=== PATIENT | female | born 1965 | race Caucasian/White ===

== ENCOUNTER → 2017-03-29 | Outpatient (CLI) | payer OTHER ==
[~2017-03-29] MED LIST: CALCTAB7 PO; IBUP-1050 PO; MECL25TA2 PO; METR0.7510 PV; METR0.7527 TOP; MULTTAB58 PO; NXM/40 PO; PENC1CRE33 TOP; SULFACETAMIDE 10% TOP
--- NOTE | 2017-03-30 08:16 | MAMMOGRAPHY REPORT ---
BILATERAL DIGITAL SCREENING MAMMOGRAM TOMOSYNTHESIS WITH CAD: 03/29/2017 CLINICAL HISTORY: Routine screening. Patient has no complaints. TECHNIQUE: Breast tomosynthesis in addition to standard 2D mammography was performed. Current study was also evaluated with a Computer Aided Detection (CAD) system. COMPARISON: Comparison is made to exams dated: 03/16/2016 mammogram, 03/11/2015 mammogram, 03/07/2014 mammogram, 03/05/2013 mammogram - [facility], 10/29/2010 mammogram, and 10/28/2009 m ammogram - [facility]. BREAST COMPOSITION: The tissue of both breasts is extremely dense, which lowers the sensitivity of mammography. FINDINGS: There is a 6 mm nodular asymmetry in the far posterior right breast, along the posterior nipple line on the MLO view that persists on the tomosynthesis images. Although this could represen t normal overlapping fibrolinear tissue, additional spot compression to the symphysis views and poss ibly ultrasound are recommended. There are scattered benign-appearing microcalcifications bilaterally. No other suspicious mass, arc hitectural distortion or cluster of microcalcifications is seen. IMPRESSION: ACR BI-RADS CATEGORY 0: INCOMPLETE EVALUATION: NEED ADDITIONAL IMAGING EVALUATION The 6 mm nodular asymmetry in the far posterior right breast on the MLO view needs additional evalua tion. The patient will be called to schedule an appointment. Approximately 10% of breast cancers are not detected with mammography. A negative mammographic repor t should not delay biopsy if a clinically suggestive mass is present. Eri Hoang M.D. ay/:03/29/2017 17:44:05 Rn Clinician: Connie PROCTOR(Eloy)(M), [facility] letter sent: Addl Imaging 0 BI-RADS Code: ACR BI-RADS Category 0: Incomplete Evaluation: Need Additional Imaging Evaluation
== END | disposition home or self-care (01) ==
LOC: C.MAMM 16:38
PROVIDERS: ATTEND Obstetrics & Gynecology
DX: Z12.31 Encounter for screening mammogram for malignant neoplasm of breast (principal); N64.9 Disorder of breast, unspecified

== ENCOUNTER → 2017-04-13 | Outpatient (CLI) | payer OTHER ==
--- NOTE | 2017-04-13 14:07 | MAMMOGRAPHY REPORT ---
UNILATERAL RIGHT DIGITAL DIAGNOSTIC MAMMOGRAM TOMOSYNTHESIS: 04/13/2017 CLINICAL HISTORY: Callback from screening mammogram for right breast asymmetry. TECHNIQUE: Breast tomosynthesis in addition to standard 2D mammography was performed. Spot mariza juan right MLO 2-D and tomosynthesis images were obtained. COMPARISON: Comparison is made to exams dated: 03/29/2017 mammogram, 03/16/2016 mammogram, 03/11/2015 mammogram, 03/07/2014 mammogram, 03/05/2013 mammogram - [facility], and 10/29/2010 m ammogram - [facility]. BREAST COMPOSITION: The tissue of the right breast is extremely dense, which lowers the sensitivity of mammography. FINDINGS: The previously described asymmetry seen within the right posterior breast on the MLO view effaces to a baseline appearance on the additional spot compression views, and has the appearance o f normal fibroglandular tissue on the tomosynthesis images. No suspicious masses or areas of maryam ectural distortion are noted in this region on the additional images. IMPRESSION: ACR BI-RADS CATEGORY 2: BENIGN The right breast asymmetry effaces on the additional images, and is benign and compatible with messi l fibroglandular tissue. There is no mammographic evidence of malignancy. A 1 year screening mammog marla is recommended. The patient has been verbally notified of the results. Approximately 10% of breast cancers are not detected with mammography. A negative mammographic repor t should not delay biopsy if a clinically suggestive mass is present. Karma Jacques M.D. /:04/13/2017 08:22:40 Coremaker Apprentice: Karissa Cassidy, [facility] letter sent: Normal 1/2 BI-RADS Code: ACR BI-RADS Category 2: Benign
== END | disposition home or self-care (01) ==
LOC: C.MAMM 08:03
PROVIDERS: ATTEND Obstetrics & Gynecology
DX: N64.89 Other specified disorders of breast (principal)

== ENCOUNTER → 2017-07-21 | Outpatient (CLI) | payer OTHER ==
[~2017-07-21] MED LIST changes: -PENC1CRE33 TOP; +PENC1CRE4 TOP
[2017-07-21 12:09] LABS: URINE APPEARANCE CLEAR (CLEAR); URINE BILIRUBIN NEG (NEG); URINE COLOR DK YELLOW; URINE EPITHELIAL CELL AUTO >30 /lpf (0-5); URINE NITRITE NEG (NEG); URINE PH 6.5 (4.5-7.5); URINE SPECIFIC GRAVITY 1.026 (1.000-1.030); UROBILINOGEN NEG (NEG); ZZUR CULT IF INDIC CLEAN CATCH NO
[2017-07-21 12:15] LABS: MANUAL MICROSCOPIC REQUIRED? NO; REVIEW REQ? NO
== END | disposition home or self-care (01) ==
LOC: C.LABSPEC 11:07
PROVIDERS: ATTEND Obstetrics & Gynecology
DX: R39.9 Unspecified symptoms and signs involving the genitourinary system (principal)

== ENCOUNTER → 2017-07-21 | Outpatient (CLI) | payer OTHER | END | disposition home or self-care (01) | LOC: C.PAPS 12:00 | PROVIDERS: ATTEND Obstetrics & Gynecology | DX: Z12.4 Encounter for screening for malignant neoplasm of cervix (principal) ==

== ENCOUNTER → 2017-10-18 | Outpatient (CLI) | payer OTHER ==
[~2017-10-18] MED LIST changes: +PENC1CRE33 TOP; -PENC1CRE4 TOP
[2017-10-18 16:00] LABS: URINE APPEARANCE CLEAR (CLEAR); URINE BILIRUBIN NEG (NEG); URINE COLOR YELLOW; URINE NITRITE NEG (NEG); URINE PH 7.5 (4.5-7.5); URINE SPECIFIC GRAVITY 1.004 (1.000-1.030); UROBILINOGEN NEG (NEG)
[2017-10-18 16:02] LABS: MANUAL MICROSCOPIC REQUIRED? NO; REVIEW REQ? NO
== END | disposition home or self-care (01) ==
LOC: C.LABSPEC 15:42
PROVIDERS: ATTEND Obstetrics & Gynecology
DX: R32 Unspecified urinary incontinence (principal); N39.0 Urinary tract infection, site not specified

== ENCOUNTER → 2017-10-18 | Outpatient (CLI) | payer OTHER ==
--- NOTE | 2017-10-18 15:02 | DIAGNOSTIC IMAGING REPORT ---
R SHOULDER MIN 2 VIEWS ROUTINE CLINICAL HISTORY: ABNORMAL BONE FORMATION mass COMPARISON: None. DISCUSSION: Chronic grade 1 separation right acromioclavicular joint. Mild superior displacement of the clavicle in relation to the acromion. Angulation of the mid clavicular shaft. 3 secondary to an old healed fracture. No acute bony abnormality. There is no evidence for soft tissue swelling. IMPRESSION: 1. 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 2. Superior angulation mid clavicular shaft felt to be secondary to old trauma. The above report was generated using voice recognition software. It may contain grammatical, syntax or spelling errors. Electronically signed by: Adonis Gonsales M.D. 10/18/2017 3:01 PM Dictated Date/Time: 10/18/2017 3:00 PM
== END | disposition home or self-care (01) ==
LOC: C.RAD1850 14:42
PROVIDERS: ATTEND Family Medicine
DX: M89.8X9 Other specified disorders of bone, unspecified site (principal); S43.101D Unspecified dislocation of right acromioclavicular joint, subsequent encounter; X58.XXXD Exposure to other specified factors, subsequent encounter

== ENCOUNTER → 2017-10-30 | Outpatient (CLI) | payer OTHER | END | disposition home or self-care (01) | LOC: C.MAMM 15:30 | PROVIDERS: ATTEND Family Medicine | DX: E28.39 Other primary ovarian failure (principal) ==

== ENCOUNTER → 2017-11-08 | Outpatient (CLI) | payer OTHER ==
--- NOTE | 2017-11-08 21:08 | DIAGNOSTIC IMAGING REPORT ---
CHEST 2 VIEWS ROUTINE CLINICAL HISTORY: 52 years-old Female presenting with COUGH. TECHNIQUE: PA and lateral views of the chest were obtained. COMPARISON: 12/04/2015. FINDINGS: Cardiomediastinal silhouette normal. Lungs and pleural spaces clear. Osseous structures normal. Upper abdomen normal. IMPRESSION: 1. No acute cardiopulmonary disease. Electronically signed by: Jackson Espinoza M.D. 11/08/2017 9:06 PM Dictated Date/Time: 11/08/2017 9:05 PM
== END | disposition home or self-care (01) ==
LOC: C.RAD 20:24
PROVIDERS: ATTEND Family Medicine Adolescent Medicine
DX: R05 Cough (principal)

== ENCOUNTER → 2018-02-13 | Outpatient (CLI) | payer OTHER ==
--- NOTE | 2018-02-13 18:26 | DIAGNOSTIC IMAGING REPORT ---
ORBITS FOR MRI HISTORY: Pre-MRI pre-MRI screening. COMPARISON: None. FINDINGS: There are no radiopaque foreign bodies identified within the orbits. IMPRESSION: No radiopaque foreign bodies identified within the orbits. The above report was generated using voice recognition software. It may contain grammatical, syntax or spelling errors. Electronically signed by: Adonis Gonsales M.D. 02/13/2018 6:24 PM Dictated Date/Time: 02/13/2018 6:24 PM
--- NOTE | 2018-02-13 19:04 | DIAGNOSTIC IMAGING REPORT ---
BRAIN W/O FOR MS CLINICAL HISTORY: TARAGEUSIA,UNSPECIFIED NYSTAGMUS mental status change TECHNIQUE: Multi axial MRI acquisition COMPARISON STUDY: None FINDINGS: Diffusion-weighted images are negative for an acute ischemic insult. Additional sequences demonstrate several foci of increased signal within the periventricular deep white matter regions. Foci of increased signal are seen within the optic radiations bilaterally. There are also seen in the right frontal region as well as several small punctate foci in the deep white matter regions. No abnormal signal characteristics of the pontine medullary region are identified. Internal auditory canals are unremarkable. The sella and parasellar regions are within normal limits. IMPRESSION: 1. Several foci of increased signal within the periventricular and deep white matter regions, as well as the optic radiations bilaterally. 2. Diagnostic considerations include a demyelinating disorder such as multiple sclerosis, with chronic small vessel change also a diagnostic possibility. The above report was generated using voice recognition software. It may contain grammatical, syntax or spelling errors. Electronically signed by: Adonis Gonsales M.D. 02/13/2018 7:02 PM Dictated Date/Time: 02/13/2018 6:59 PM
== END | disposition home or self-care (01) ==
LOC: C.MRI 17:41
PROVIDERS: ATTEND Family Medicine
DX: Z01.818 Encounter for other preprocedural examination (principal); R43.2 Parageusia; H55.00 Unspecified nystagmus; R26.89 Other abnormalities of gait and mobility

== ENCOUNTER → 2018-04-04 | Outpatient (CLI) | payer OTHER ==
--- NOTE | 2018-04-10 08:46 | MAMMOGRAPHY REPORT ---
BILATERAL DIGITAL SCREENING MAMMOGRAM TOMOSYNTHESIS WITH CAD: 04/04/2018 CLINICAL HISTORY: Routine screening. Patient has no complaints. TECHNIQUE: Breast tomosynthesis in addition to standard 2D mammography was performed. Current study was also evaluated with a Computer Aided Detection (CAD) system. COMPARISON: Comparison is made to exams dated: 04/13/2017 mammogram, 03/29/2017 mammogram, 03/16/2016 m ammogram, 03/11/2015 mammogram, 03/07/2014 mammogram, and 03/05/2013 mammogram - [facility]. BREAST COMPOSITION: The tissue of both breasts is extremely dense, which lowers the sensitivity of m ammography. FINDINGS: No suspicious masses, calcifications, or areas of architectural distortion are noted in ei ther breast. There has been no significant interval change compared to prior exams. IMPRESSION: ACR BI-RADS CATEGORY 1: NEGATIVE There is no mammographic evidence of malignancy. A 1 year screening mammogram is recommended. The pa tient will receive written notification of the results. Approximately 10% of breast cancers are not detected with mammography. A negative mammographic report should not delay biopsy if a clinically suggestive mass is present. Karma Jacques M.D. /:04/05/2018 07:42:34 Order Schedule Clerk: Calista PROCTOR(R)(M), [facility] letter sent: Normal 1/2 BI-RADS Code: ACR BI-RADS Category 1: Negative
== END | disposition home or self-care (01) ==
LOC: C.MAMM 17:20
PROVIDERS: ATTEND Obstetrics & Gynecology
DX: Z12.31 Encounter for screening mammogram for malignant neoplasm of breast (principal)

== ENCOUNTER → 2018-07-13 | Outpatient (CLI) | payer OTHER | END | disposition home or self-care (01) | LOC: C.LABSPEC 13:54 | PROVIDERS: ATTEND Obstetrics & Gynecology | DX: R39.9 Unspecified symptoms and signs involving the genitourinary system (principal); N95.0 Postmenopausal bleeding ==